=== PATIENT | male | born 1950 | race Caucasian/White ===

== ENCOUNTER 2016-07-16 07:05 | Day surgery (SDC) | payer MEDICARE, OTHER ==
[~2016-07-16] VITALS: Ht 172.7 cm; Wt 70.8 kg
[2016-07-16] VITALS (9 sets, daily range): BP systolic 123–138; BP diastolic 68–86; PULSE 72–80; RESP 10–15; O2SAT 96–100
[~2016-07-16 07:05] MED LIST: ASCO-294 PO; ASPI-973 PO; ATOR80TA PO; CARV3.122 PO; CeFAZolin Inj 2 GM in IV Premix 1 EACH IV ONE; ESOM20CA28 PO; LISI40TA PO; LORA0.5T PO; Lactated Ringer's 1,000 ML IV SCH; MULT-1018 PO; PARO20TA5 PO; PRAZ2CAP2 PO; TAMS0.4C98 PO; VITA100T6 PO; ZOF8 PO
[2016-07-16] MEDS ORDERED: Dexamethasone 4 mg/mL Inj ONE (07:06)
[2016-07-16] MEDS ORDERED: fentaNYL-PF 50 mCg/mL 2 mL Inj ONE (07:06)
[2016-07-16] MEDS ORDERED: Propofol 10,000 mCg/mL 20 mL Inj ONE (07:06)
[2016-07-16] MEDS ORDERED: Ondansetron 2 mg/mL 2 mL Inj ONE (07:06)
[2016-07-16] MEDS ORDERED: EPHEDrine/NS 5 mg/mL 5 mL Syringe ONE (07:06)
[2016-07-16] MEDS ORDERED: Lactated Ringer's 1,000 ML IV SCH (07:39)
[2016-07-16] MEDS ORDERED: Lactated Ringer's 500 ML IV PRN (07:39)
--- NOTE | 2016-07-16 07:39 | PCM.HPANE ---
Patient Data Surgeon Admitting Provider: Attending Provider:Radha Pollock MD Primary Care Physician:[facility] Other Provider:Naomi Dowell Anesthesia Reason for Visit Malignant Bladder Neoplasm Ht/WT & BMI Height (Feet): 5 Height (Inches): 8 Weight (Kilograms): 70.76 Body Mass Index 23.00 Allergies Coded Allergies: No Known Allergies (Verified Allergy, Unknown, 04/23/16) Past Anesthesia History Anesthesia History: Denies:: Anesthesia Reactions, Malignant Hyperthermia Diabetes History Hx Diabetes?: No MRSA MRSA: No Medications Blood Thinner: Aspirin Hypertension Medication: Yes Home Meds Incl Beta Almaz: Yes (Coreg) Date Beta Almaz Taken: Jul 15, 2016 Time Beta Almaz Taken: 0900 Previous Beta Almaz Dose >24: Give Dose Perioperatively (if HR and BP allow) Reported Medications Tamsulosin (Flomax)0.4 Mg Capsule0.4 Mg PO DAILY Ref 0 04/20/16 Vitamin E Acid Succinate (Vitamin E)100 Unit [id number] Unit PO DAILY 04/20/16 Ascorbate Calcium (Vitamin C)500 Mg [id number] Mg PO DAILY 04/20/16 Prazosin 2 Mg Capsule2 Mg PO dinner 04/20/16 Paroxetine 20 Mg Yqthtx11 Mg PO HS 30 Days Ref 0 04/20/16 Ondansetron (Zofran)8 Mg Tablet8 Mg PO Q12H PRN For Nausea 04/20/16 Esomeprazole Magnesium (Nexium)20 Mg Capsule.dr20 Mg PO DAILY Ref 0 04/20/16 Multivitamin (Multi Vitamin Daily)1 Each Tablet1 Each PO DAILY 30 Days Ref 0 04/20/16 Lorazepam 0.5 Mg Tablet0.5 Mg PO TID PRN For Anxiety Ref 0 04/20/16 Carvedilol 3.125 Mg Tablet3.125 Mg PO BID Ref 0 04/20/16 Atorvastatin (Lipitor)80 Mg Ybetrg03 Mg PO DAILY Ref 0 04/20/16 Aspirin 81 Mg Zqzvou37 Mg PO DAILY Ref 0 04/20/16 Lisinopril 40 Mg Llsoqx27 Mg PO DAILY 30 Days Ref 0 04/20/16 History HEENT History: Denies:: Dysphagia Sinus Problem TMJ Hx of Heart Problems?: Yes Cardiovascular History: Positive for:: Cardiac Surgery (remote hx of cath with stent placement) Chest Pain Hypertension Denies:: Heart Murmur Valvular Heart Disease Other Cardiac History: hx of low platelets during chemo- lst platelet count 216 on 06/13/16 Denies recent CP/SOB Hx of Respiratory Problem?: Yes Respiratory History: Positive for:: COPD Use of C-PAP Machine Denies:: Pneumonia Tuberculosis Use of Inhalers / NEBS Hx Neurologic Problems?: No Neurological History: Denies:: CVA Multiple Sclerosis Parkinson's Disease Seizures Hx of GI Problems?: Yes Gastrointestinal History: Positive for:: Gastroesphageal Reflux Hx of Problems?: Yes Other Pertinent History: bladder tumor current admission problem- last surgery here 04/23 Male Hx: Denies:: Prostate Problems Scrotal Mass Testicular Surgery Skin History: Denies:: History Skin Disorders? Pressure Ulcers Hx Musculoskeletal Problems?: Yes Psycho Social History: Positive for:: Anxiety (PTSD) Bipolar Disorder Hx Depression Hx Surgeries?: Yes (turbt, ureteral stents, tonsils, throat polyps as child) Hx Any Other Health Problems?: Yes Other History: Positive for:: Cancer (bladder- current admission problem) Hospitalization Denies:: Endocrine Disease Thyroid Disease History Blood Transfusions: Denies:: Blood Transfusions Hx Diabetes: No Hx Alcohol Use: YesAlcoholic Drinks Per Day: occasionalHx Substance Use: Yes (VAPES CANNABIS) Smoking Status: Former Smoker Have You Smoked inLast 12 mo: Yes (QUIT RECENTLY) Stop/Bang S-Snoring: Do You Snore Loudly: No T-Tired: feel tired, fatigued: Yes O-Obsered: Observed not breath: Yes P-Blood Pressure: treated: Yes B- Body Mass Index > 35 kg/m2: No A- Age over 50: Yes N- Neck Large Circumference: No G- Gender Male: Yes CHIP Total Score: 5 CHIP Risk Assessment: High Risk, =/>3 Yes Risk Assessment Category Category 1A: Patient has history of documented sleep apnea, and HAS NOT received any narcotic, sedative or anesthesia administration during this stay. Category 1B: Patient has history of documented sleep apnea, and HAS received any narcotic , sedative or anesthesia administration during this stay Category 2: Patient has SUSPECTED Obstructive Sleep Apnea, and HAS received any narcotic , sedative or anesthesia administration during this stay. Category 3: Patient has SUSPECTED Obstructive Sleep Apnea and HAS NOT received narcotic, sedative or anesthesia administration during this stay. Category 4: Outpatient in Procedural Areas with known sleep apnea or who screen positive for High Risk via the STOP/BANG questionnaire. Exam Exam Vital Signs Vital Signs Date Time Temp Pulse Resp B/P Pulse Ox O2 Delivery O2 Flow Rate FiO2 07/16/16 07:30 36.4 76 14 126/68 100 Room Air General Appearance: Alert, Oriented X3, Cooperative, No Acute Distress HEENT/AIRWAY: MP 2, Other (dentures) Lungs: Clear to Auscultation, Normal Air Movement Heart: Exam Unremarkable, Regular Rate/Rhythm, No Murmurs/Rubs/Gallops Plan Impression Patient chart reviewed, patient interviewed and anesthestic plan with risks, benefits, and alternatives discussed, and informed consent obtained. NPO Status: 07/15@1900 ASA Physical Status: ASA2 Mod Systemic Disease Anesthetic Plan: GA Bene/Risks/Altern/Consents: Yes (Patient prefers to leave dentures, discussed risks.) HP Complete Prior to Induction: Yes Stevan Beaver MD Jul 16, 2016 07:39
[2016-07-16] MEDS ORDERED: fentaNYL-PF 50 mCg/mL 2 mL Inj IVPUSH PRN (07:40)
[2016-07-16] MEDS ORDERED: Atropine 0.4 mg/mL Inj IVPUSH PRN (07:40)
[2016-07-16] MEDS ORDERED: Ondansetron 2 mg/mL 2 mL Inj IVPUSH PRN (07:40)
[2016-07-16] MEDS ORDERED: EPHEDrine Sulfate 50 mg/mL Inj IVPUSH PRN (07:40)
[2016-07-16] MEDS ORDERED: HYDROmorphone 1 mg/mL Inj IVPUSH PRN (07:40)
[2016-07-16] MEDS ORDERED: Labetalol 5 mg/mL 4 mL Inj IV PRN (07:40)
[2016-07-16] MEDS ORDERED: Phenylephrine 10,000 mCg/mL Inj IVPUSH PRN (07:40)
[2016-07-16] MEDS ORDERED: MetoCLOpramide 5 mg/mL 2 mL Inj IVPUSH PRN (07:40)
[2016-07-16] MEDS ORDERED: hydrALAZINE 20 mg/mL Inj IVPUSH PRN (07:40)
[2016-07-16] MEDS ORDERED: HYDROcodone-APAP 5-325 mg Tablet PO PRN (08:35)
--- NOTE | 2016-07-16 08:38 | PCM.ANEP1 ---
Post Anesthesia Phase 1 PACU Phase 1 Assessment Vital Signs Vital Signs Date Time Temp Pulse Resp B/P Pulse Ox O2 Delivery O2 Flow Rate FiO2 07/16/16 08:35 76 11 132/75 99 Nasal Cannula 2 07/16/16 08:30 36.7 72 10 138/74 100 Nasal Cannula 4 07/16/16 07:30 36.4 76 14 126/68 100 Room Air Anesthetic Administered: GA Level of Alertness: Sleepy, easy to arouse GUY's with Equal Strength: Yes Pain: No Nausea or Vomiting: No Oxygen Delivery: Nasal Cannula Lungs: Clear to Auscultation, Normal Air Movement Stevan Beaver MD Jul 16, 2016 08:38
--- NOTE | 2016-07-16 08:49 | PCM.ANEP2 ---
Post Anesthesia Evaluation ASA/CMS Post Anesthesia VS in Patient's Normal Range?: Yes Resp Stable; Airway Patent?: Yes CV Function & Hydration Stable: Yes Mental Status Recovered?: Yes Pain control Satisfactory?: Yes N/V Control Satisfactory?: Yes Stevan Beaver MD Jul 16, 2016 08:48
--- NOTE | 2016-07-16 09:13 | DRSVH ---
PROCEDURE: X-RAY RETROGRADE UROGRAPHY INDICATIONS: BILATERAL STENT REMOVAL COMPARISON: [facility], CT, KIDNEY/ URETER/BLADDER, 06/08/2016, 9:28. TECHNIQUE: 10 intra-operative images acquired by the Urology service. Bilateral retrograde pyelograms were performed which demonstrate normal appearance of the renal colle cting systems bilaterally. There is a roughly 1 cm rounded filling defect visualized within the prox imal left ureter as well as to filling defects within the mid to lower right ureter which may represe nt gas bubbles but retained stones cannot be excluded. Visualized course and caliber of the ureters otherwise grossly normal. No extravasation of contrast. IMPRESSION: 1. Bilateral ureteral filling defects which may be related to gas bubbles but stones cannot be exclud ed. Recommend correlation with real-time examination. Dictated by: Ken LINDSAY Interpreted: Sydney Rodriguez MD on 07/16/2016 at 9:10 Transcribed by: JESUS on 07/16/2016 at 9:13 Approved by: Sydney Rodriguez M.D. on 07/16/2016 at 11:16
--- NOTE | 2016-07-16 11:57 | OP ---
[address] [address] OPERATIVE REPORT PATIENT: JONATHON AMAYA : 1950 MR#: [id number] ADMIT: 07/16/2016 JOB ID: [id number] DATE OF SURGERY: 07/16/2016 PREOPERATIVE DIAGNOSIS(ES): History of bladder cancer. POSTOPERATIVE DIAGNOSIS(ES): History of bladder cancer. PROCEDURE PERFORMED: 1. Rectal exam under anesthesia. 2. Cystoscopy. 3. Bilateral retrograde pyelogram. 4. Bilateral stent removal. 5. Bladder biopsy. SURGEON: Radha Pollock MD DRAPERY EXAMINER: None. FINDINGS: 1. Mildly and diffusely indurated prostate, which is smooth without nodules. No fixed masses. No abnormal masses on exam. 2. False passage at the inferior aspect of the bulbar urethra, which appears to be an old finding. 3. Medially retracted bilateral ureteral orifices surrounded with bullous edema consistent with indwelling ureteral stents. 4. No evidence of gross recurrence of bladder tumors. ANESTHESIA: General. ESTIMATED BLOOD LOSS: Less than 5 mL. DRAINS: None. SPECIMENS: Bladder biopsies. COMPLICATIONS: None. CONDITION: Stable. INDICATIONS FOR THE PROCEDURE: The patient is a 65-year-old gentleman with a history of bladder cancer that was and high grade, muscle invasive. He has undergone chemotherapy and radiation. He does not wish to proceed with radical cystectomy. He presents today for the aforementioned procedures. DESCRIPTION OF PROCEDURE: After informed consent was obtained, the patient was taken to the operating room. A time-out was performed, identifying correct patient, surgical site, and procedure. General anesthesia was smoothly induced. He was given intravenous antibiotics just prior to the start of procedure. A rectal exam was performed. There was no overt abnormality. His genitals were then prepped and draped in a sterile fashion. A 22-Syriac cystoscope was then advanced into the urethra and into the bladder. The bladder was drained. Both ureteral orifices were seen. They were medially drawn in and quite close to one another. The bladder was systematically inspected with both 30 and 70 degree lenses. There was no sign of gross recurrence of bladder tumors. The left ureteral stent was grasped with stent graspers. A wire was loaded over it and the stent was then removed. The stent was examined on the back table and ensured as removed in its entirety. Retrograde pyelogram was performed. There appeared to be no hydroureter. There was moderate hydronephrosis present. There were no filling defects. The Pollack was then removed. The same procedure commenced on the right side. Retrograde pyelogram was performed there. There was some mild hydroureter and moderate hydronephrosis there, but there were no filling defects. This stent was also examined on the back table and ensured as removed in its entirety. Biopsies were performed along the trigone, posterior aspect of the bladder, and lateral aspects of the bladder as well. These were passed off the table to Pathology as bladder biopsies. Bugbee electrode was used to spot cauterize these areas. The bladder was drained. The bladder was examined. There was no bleeding. The cystoscope was then removed from the patient's body. The patient was then reversed from general anesthesia and taken to PACU in good and stable condition. LAKEISHA
--- NOTE | 2016-07-17 12:56 | PATH ---
SURGICAL PATHOLOGY Attending Physician:Radha Pollock, CASE STATUS: Signed Out PATIENT NAME: JONATHON AMAYA PID: [id number] : 1950 DATE COLLECTED:07/16/2016 17:14 SPECIMEN: Bladder, Biopsy CLINICAL HISTORY: BLADDER CANCER 1). BLADDER BIOPSY FINAL DIAGNOSIS: 1.BLADDER BIOPSY: SINGLE, SMALL FOCUS OF TRANSITIONAL CELL HYPERPLASIA (PLEASE SEE MICROSCOPIC DESCRIPTION). NO EVIDENCE OF MALIGNANCY OR DYSPLASIA. ICD10 CODE Z85.51 GROSS DESCRIPTION: The specimen is received in one formalin filled container labeled with the patient's name, sublabeled "bladder biopsy" and consists of 3 portions of tissue which aggregate to 0.3 x 0.3 x 0.3 CM. The specimen is entirely submitted in one cassette. 07/16/2016 [facility] MICRO DESCRIPTION: One of three biopsy fragments demonstrates submucosal edema and a single, 0.5-mm focus of transitional cell hyperplasia, where the epithelium is more than ten layers thick. However, these cells demonstrate minimal atypia. I favor a diagnosis of benign transitional cell hyperplasia. ICD-9 CODES: CPT CODES: 1: 17116 Electronically Signed Out Hudson Vargas MD [facility] Pathology [facility] [address], [place] [address] Technical component performed at [facility], [facility] [address], [address]
== END 2016-07-16 23:59 | disposition home or self-care (01) ==
LOC: SAS 07:05
PROVIDERS: ATTEND Urology
DX: Z85.51 Personal history of malignant neoplasm of bladder (principal); N13.4 Hydroureter; N13.30 Unspecified hydronephrosis; Z92.21 Personal history of antineoplastic chemotherapy; Z92.3 Personal history of irradiation; Z87.891 Personal history of nicotine dependence; Z79.82 Long term (current) use of aspirin
CPT/HCPCS: 52204; 74420; 88305; J0690; J1100; J2405; J3010; J7120; Q9967